=== PATIENT | male | born 1985 | race Caucasian/White ===

== ENCOUNTER 2020-07-20 22:10 | Emergency (ER) | payer SELFPAY ==
[2020-07-20] MEDS ORDERED: Acetaminophen 325 MG Tab ONE (22:45)
[2020-07-20] MEDS ORDERED: Tetracaine HCl/PF 0.5% 4 ML Bottle ONE (22:46)
[2020-07-20] MEDS ORDERED: Cephalexin 250 MG Cap PO ONE (23:15)
[2020-07-20] MEDS ORDERED: Bacitracin/Neomycin/Polymyxin B Oint 0.9 GM U/D Packet ONE (23:16)
[2020-07-20] MEDS ORDERED: Tetracaine HCl/PF 0.5% 4 ML Bottle EYEBOTH ONE (23:17)
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
[2020-07-21] MEDS ORDERED: Gentamicin 0.3% Ophth Soln 5 ML Bottle ONE (00:06)
[2020-07-21 00:49] VITALS: BP 126/80; PULSE 84
[2020-07-21] MEDS ORDERED: Gentamicin 0.3% Ophth Soln 5 ML Bottle EYEBOTH SCH (09:00)
== END 2020-07-20 23:55 | disposition home or self-care (01) ==
LOC: KA.ED 22:10
DX: S01.111A Laceration without foreign body of right eyelid and periocular area, initial encounter (principal); S05.02XA Injury of conjunctiva and corneal abrasion without foreign body, left eye, initial encounter; H11.33 Conjunctival hemorrhage, bilateral; W50.0XXA Accidental hit or strike by another person, initial encounter; Y92.481 Parking lot as the place of occurrence of the external cause
CPT/HCPCS: 99283; A9270-GY